=== PATIENT | female | born 1940 | race Caucasian/White ===

== ENCOUNTER 2022-08-19 17:15 | Emergency (ER) | payer MEDICARE ==
[~2022-08-19] VITALS: Ht 170.2 cm; Wt 53.5 kg
[2022-08-19] MEDS ORDERED: SUMATRIPTAN SUCCINATE 6 MG/0.5 ML VIAL SQ ONE ×2 (17:30→17:40)
[2022-08-19] MEDS ORDERED: KETOROLAC TROMETHAMINE INJ 30 MG/ML VIAL IV ONE (17:30)
[2022-08-19] MEDS ORDERED: IV NS 0.9% 1,000 ML BAG IV ONE (17:30)
[2022-08-19] MEDS ORDERED: KETOROLAC TROMETHAMINE 15 MG/ML VIAL ONE (17:40)
[2022-08-19] MEDS ORDERED: METOCLOPRAMIDE HCL 10 MG/2 ML VIAL ONE (17:59)
[2022-08-19] MEDS ORDERED: METOCLOPRAMIDE HCL 10 MG/2 ML VIAL IV ONE (18:00)
--- NOTE | 2022-08-19 19:04 | NUR ---
FLAKO RA878 From Home "I have a headache- Hx of migraine same symptoms like before". PLACED ON BED, AAOX4, BREATHING EVEN AND UNLABORED, IN PAIN 10/10 PS.
--- NOTE | 2022-08-19 19:40 | NUR ---
IV removed. Catheter intact and site benign. Pressure and 4x4 applied to site. No bleeding noted.Patient discharged to home in stable condition. Written and verbal after care instructions given. Patient verbalizes understanding of instruction.
[2022-08-19 20:05] VITALS: BP 140/80
== END 2022-08-19 19:40 | disposition home or self-care (01) ==
LOC: ER 17:23
DX: R51.9 Headache, unspecified (principal)
CPT/HCPCS: 99284; 96374; 96361; 96375; 96372; J3030; J2765; J7030; J1885